=== PATIENT | female | born 1975 | race American Indian/Alaskan Native ===

== ENCOUNTER 2016-04-24 18:17 | Emergency (ER) | payer OTHER ==
[2016-04-24 19:35] VITALS: BP 131/92
[2016-04-24] MEDS ORDERED: MOTRIN PO ONE (20:26)
[2016-04-24] MEDS ORDERED: FLEXERIL PO ONE (20:26)
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
== END 2016-04-24 22:47 | disposition home or self-care (01) ==
LOC: ED 18:17
DX: M79.1 Myalgia (principal); V49.9XXA Car occupant (driver) (passenger) injured in unspecified traffic accident, initial encounter; Y93.89 Activity, other specified; Y99.9 Unspecified external cause status; Y92.410 Unspecified street and highway as the place of occurrence of the external cause
CPT/HCPCS: 72040; 72080